=== PATIENT | female | born 1975 | race African-American/Black ===

== ENCOUNTER 2017-01-04 16:18 | Emergency (ER) | payer OTHER | END 2017-01-04 17:40 | disposition home or self-care (01) | LOC: ER 16:18 | DX: S82.62XA Displaced fracture of lateral malleolus of left fibula, initial encounter for closed fracture (principal); E03.9 Hypothyroidism, unspecified; Z79.899 Other long term (current) drug therapy; W18.30XA Fall on same level, unspecified, initial encounter; Y92.009 Unspecified place in unspecified non-institutional (private) residence as the place of occurrence of the external cause ==